=== PATIENT | male | born 1945 | race Caucasian/White ===

== ENCOUNTER 2017-05-15 20:59 | Emergency (ER) | payer OTHER ==
[~2017-05-15] VITALS: Ht 167.6 cm; Wt 109.6 kg
[~2017-05-15 20:59] MED LIST: ATORVASTATIN CA80 MG PO; DAILY VALUE1 EACH PO; FLOMAX0.4 MG PO; LATANOPROST2.5 ML BOTH EYES; METOPROLOL TART25 MG PO; OMEPRAZOLE40 M1 PO; ST. JOSEPH ASPI81 MG PO; ZETIA10 MG PO
[2017-05-15 21:32] LABS: APPEARANCE CLEAR ((CLEAR)); BILIRUBIN NEGATIVE; BLOOD NEGATIVE; COLOR YELLOW ((YELLOW)); GLUCOSE (STRIP) NEGATIVE; KETONES NEGATIVE; LEUKOCYTES NEGATIVE; NITRITE NEGATIVE; PROTEIN (STRIP) NEGATIVE; SPECIFIC GRAVITY 1.018 (1.000-1.030); UCUL ADDED? NO; UROBILINOGEN 0.2 MG/DL (0.2-1.0)
[2017-05-15 21:37] LABS: HEMATOCRIT 43.7 % (38.0-50.0); HEMOGLOBIN 15.2 G/DL (12.5-16.6); MCH 30.1 PG (29.0-34.0); MCHC 34.8 G/DL (30.0-36.0); MCV 86.5 FL (86-99); PLATELET COUNT 130 K/uL (156-360); RBC DIS.WIDTH-CV 12.9 % (11.8-14.6); RBC DIS.WIDTH-SD 40.3 % (39-53); RED BLOOD COUNT 5.05 M/uL (4.00-5.50)
[2017-05-15 21:44] LABS: ALBUMIN 4.3 g/dL (3.2-4.8)
[2017-05-15 21:45] LABS: CHLORIDE 106 mEq/L (99-109); POTASSIUM 3.6 mEq/L (3.7-5.4); SODIUM 141 mEq/L (136-147)
[2017-05-15 21:47] LABS: GLUCOSE 143 mg/dL (70-99)
[2017-05-15 21:49] LABS: TOTAL BILIRUBIN 0.5 mg/dL (0.0-1.0)
[2017-05-15 21:50] LABS: ALKALINE PHOSPHATASE 82 IU/L (3-129)
[2017-05-15 21:51] LABS: CREATININE 0.9 mg/dL (0.6-1.3); GFR ESTIMATE (CALCULATED) > 59 mL/min/ (58.99-99999)
[2017-05-15 21:52] LABS: AST (GOT) 17 IU/L (2-34); UREA NITROGEN (BUN) 18 mg/dL (9-23)
[2017-05-15 21:53] LABS: ALT (GPT) 26 IU/L (3-49)
[2017-05-15 22:34] VITALS: BP 121/78
== END 2017-05-15 22:34 | disposition home or self-care (01) ==
LOC: EME 20:59
DX: R10.9 Unspecified abdominal pain (principal); I10 Essential (primary) hypertension; E78.5 Hyperlipidemia, unspecified; N40.0 Benign prostatic hyperplasia without lower urinary tract symptoms; K21.9 Gastro-esophageal reflux disease without esophagitis; Z87.891 Personal history of nicotine dependence; Z87.442 Personal history of urinary calculi; Z88.0 Allergy status to penicillin
CPT/HCPCS: 80053; 81003; 85027; 99281; 99284

== ENCOUNTER → 2017-09-28 | Outpatient (CLI) | payer OTHER | END | disposition home or self-care (01) | LOC: NUC 06:41 | DX: E55.9 Vitamin D deficiency, unspecified (principal); R10.9 Unspecified abdominal pain; Z87.19 Personal history of other diseases of the digestive system | CPT/HCPCS: 78226; A9537 ==